=== PATIENT | male | born 1995 | race Caucasian/White ===

== ENCOUNTER 2018-12-08 23:14 | Emergency (ER) | payer OTHER ==
[~2018-12-08] VITALS: Ht 182.9 cm; Wt 113.4 kg
[2018-12-08 23:16] VITALS: BP 147/84
--- NOTE | 2018-12-08 23:38 | NUR ---
XRAY AT BEDSIDE.
== END 2018-12-09 00:16 ==
LOC: ER 23:20
DX: S63.591A Other specified sprain of right wrist, initial encounter (principal); E11.9 Type 2 diabetes mellitus without complications; F17.200 Nicotine dependence, unspecified, uncomplicated; X58.XXXA Exposure to other specified factors, initial encounter; Y93.89 Activity, other specified; Y92.89 Other specified places as the place of occurrence of the external cause; Y99.8 Other external cause status
CPT/HCPCS: 73110